=== PATIENT | male | born 1975 | race Hispanic/Latino ===

== ENCOUNTER 2017-10-14 12:45 | Inpatient (IN) | payer MEDICAID ==
[2017-10-14 12:48] VITALS: BMI 28.1
--- NOTE | 2017-10-14 13:15 | C.PDOC ---
History Of Present Illness Stephon Yap is a 42 year old male, with a past history of heroin abuse, who was transferred from [facility]. Last time used was 6pm yesterday. Patient was sent here due to suicidal thoughts with no plan. Patient does have track bearden on arms. Patient states he was in [facility] 2 years ago for the same symptoms. He denies any fever, chills, or other medical complaints. PMD: None provided. Time Seen by Provider: 10/14/17 13:00 Chief Complaint (Nursing): Psychiatric Evaluation History Per: Patient History/Exam Limitations: no limitations Onset/Duration Of Symptoms: Days Current Symptoms Are (Timing): Still Present Suicide/Self Injury Attempted (Context): None Associated Symptoms: Suicidal Thoughts. denies: Suicidal Plan Involuntary Hold By: None Past Medical History Reviewed: Historical Data, Nursing Documentation, Vital Signs Vital Signs: Last Vital Signs Temp 98.4 F 10/14/17 13:31 Pulse 78 10/14/17 13:31 Resp 20 10/14/17 13:31 BP 130/85 10/14/17 13:31 Pulse Ox 98 10/14/17 13:31 - Medical History PMH: Anxiety, Depression Denies: Chronic Kidney Disease Other PMH: opioid abuse Surgical History: No Surg Hx Family History: States: Unknown Family Hx - Social History Hx Tobacco Use: No Hx Alcohol Use: No Hx Substance Use: Yes - Immunization History Hx Tetanus Toxoid Vaccination: No Hx Influenza Vaccination: No Hx Pneumococcal Vaccination: No Review Of Systems Constitutional: Negative for: Fever, Chills Psych: Positive for: Suicidal ideation Physical Exam - Physical Exam Appears: Well, No Acute Distress Skin: Normal Color, Warm, Dry Head: Atraumatic, Normacephalic Eye(s): bilateral: Normal Inspection, PERRL, EOMI Ear(s): Bilateral: Normal Nose: Normal Oral Mucosa: Moist Throat: Normal Neck: Normal ROM, Supple Cardiovascular: Rhythm Regular, No Murmur Respiratory: Normal Breath Sounds, No Wheezing Gastrointestinal/Abdominal: Normal Exam, Soft, No Tenderness, No Guarding, No Rebound Back: Normal Inspection, No CVA Tenderness, No Vertebral Tenderness Extremity: Normal ROM, No Deformity, No Swelling Neurological/Psych: Oriented x3 (alert) Gait: Steady ED Course And Treatment Progress Note: Case discussed with crisis who request admission to Dr Sequeira Reassessment Condition: Unchanged - Physician Consult Information Physician Contacted: Mello Sequeira Outcome Of Conversation: admit Medical Decision Making Medical Decision Making: Initial Impression: Psychiatric evaluation Initial Plan: --1:1 Observation --Admit to hospital --reevaluation --Patient will be admitted for psychiatric evaluation, diagnosed with depression. Disposition Discussed With DrJanet: Mello Sequeira Doctor Will See Patient In The: Hospital - Disposition Disposition: HOSPITALIZED Disposition Time: 14:00 Condition: STABLE - POA Present On Arrival: None - Clinical Impression Clinical Impression: Major depression - Scribe Statement Darren Shannon All medical record entries made by the Scribe were at my direction and personally dictated by me. I have reviewed the chart and agree that the record accurately reflects my personal performance of the history, physical exam, medical decision making, and the department course for this patient. I have also personally directed, reviewed, and agree with the discharge instructions and disposition. Decision To Admit - Pt Status Changed To: Hospital Disposition Of: Inpatient - Admit Certification Admit to Inpatient:: After my assessment, the patient will require hospitalization for at least two midnights. This is because of the severity of symptoms shown, intensity of services needed, and/or the medical risk in this patient being treated as an outpatient. - InPatient: Physician Admission Certification: I certify that this patient requires 2 or more midnights of care for the following reason:: Major Depression - . Bed Request Type: Psychiatry Admitting Physician: Mello Sequeira Patient Diagnosis: Major depression
[2017-10-14 13:32] VITALS: TEMP 98.4; O2SAT 98
[2017-10-14 14:31] VITALS: RESP 17
--- NOTE | 2017-10-14 15:05 | PCM.BM ---
Treatment Plan Problems - Problems identified on initial assessmt Depression Date Initiated: 10/14/17 Time Initiated: 14:59 Assessment reference: NA Status: Active Substance Abuse Date Initiated: 10/14/17 Time Initiated: 14:59 Assessment reference: NA Status: Active Treatment assets and liabiliti Patient Assests: adapts well, cooperative, ADL independent, physically healthy, negotiates basic needs, cognitively intact Patient Liabilities: live alone (Homeless), financial problems, poor support system, substance abuse (Heroin uses 20-30 bags IV daily and Cocaine) - Milieu Protocol Maintain good personal hygiene: daily Encourage regular showers, daily Remind patient to perform daily oral care, other Assist patient to perform ADL's (Self) Conduct patient checks and document Observation sheet: Q15 minutes (Safety) Maintain personal safety: every shift Educate patient to report safety concerns to staff, every shift Monitor environment for contraband/sharps Medication safety: Monitor for expected outcome, potential side effects: every shift, Assess barriers to learning: every shift, Assess readiness for medication education: every shift
--- NOTE | 2017-10-14 15:55 | PCM.PSYCH ---
Initial Psychiatric Evaluation - Initial Psychiatric Evaluation Type of Admission: Voluntary Chief Complaint (in patient's own words): relapse, depression, aggressive behavior Patient's Reaction to Hospitalization: 42 year old Male who was transferred from [facility] due to opioid relapse, depression, and aggression. He currently is living with a friend on his couch for the past month. 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 Highest education level high school diploma, and attended 1.5 years of college. Patient reports he has been using IV heroine and IV cocaine since he was 24 years of age. From that point to until now he has had several periods of sobriety, longest being 5 years and the shortest being close to 1 year. He usually uses 20-30 bags of IV heroine (track bearden visible) and 2-3 bags of cocaine. Last use prior to this relapse was 18-19 months ago. In recent events, he became unemployed and has been living on a friend's couch. Since then, he states his friends also use IV drugs and being surrounded by this he relapsed. He has been using for the past week or so. His last use was 6pm day prior to admission, he was very upset with himself, for relapsing. He had the intention to overdose using 30 bags of IV heroine but within a short amount of time versus over a day. This is what prompt the patient to come in. Currently denies any voices being heard, any suicidal ideation or homicidal ideation. Patient has poor judgment and good insight about his condition. PMHx: Denied Past Psych History: Depression, Opioid Use Disorder, Cocaine Use Disorder Family Psych Hx: Denied Current Medications: Active Medications Generic Name Dose Route Start Last Admin Trade Name Freq PRN Reason Stop Dose Admin Gabapentin 300 mg 10/14/17 18:00 Neurontin PO TID MAURICIO Hydroxyzine HCl 25 mg 10/14/17 14:17 Atarax PO Q6 PRN Agitation Pneumococcal Polyvalent Vaccine 0.5 ml 10/17/17 10:00 Pneumovax 23 Vaccine IM 10/17/17 10:01 .ONCE ONE Sertraline HCl 50 mg 10/15/17 10:00 Zoloft PO DAILY MAURICIO Trazodone HCl 50 mg 10/14/17 22:00 Desyrel PO HS MAURICIO Past Psychiatric History - Past Psychiatric History Previous Treatment History: Intensive Outpatient Pertinent Medical Hx (Current Medical&Sleep Prob, Allergies): Allergies Allergy/AdvReac Type Severity Reaction Status Date / Time No Known Allergies Allergy Verified 03/29/16 01:20 Doxepin [Sinequan] 10 mg PO HS #30 cap 04/07/16 Gabapentin [Neurontin] 800 mg PO TID #90 cap 04/07/16 QUEtiapine [Seroquel] 25 mg PO BID #60 tab 04/07/16 QUEtiapine [Seroquel] 100 mg PO HS #30 tab 04/07/16 Sertraline [Zoloft] 50 mg PO DAILY #30 tab 04/07/16 Review of Systems - Review of Systems All systems: reviewed and no additional remarkable complaints except - Psychiatric Psychiatric: Behavioral Changes, Depression, Difficulty Concentrating, Hopelessness, Irritability. absent: Auditory Hallucinations, Hallucinations, Homicidal Ideation, Paranoia, Suicidal Ideation, Visual Hallucinations, Tactile Hallucinations Mental Status Examination - Personal Presentation Personal Presentation: Looks stated age - Affect Affect: Depressed - Motor Activity Motor Activity: Calm - Reliability in Providing Information Reliability in Providing Information: Fair - Speech Speech: Organized, Relevant - Mood Mood: Depressed - Formal Thought Process Formal Thought Process: No Impairment - Cognitive Functions Orientation: Person, Place, Situation, Time Judgement: Imparied, as evidence by: Poor judgement, Intact, as evidence by: Insight regarding need for hospitalization - Risk Risk: Suicidal DSM 5 DX - Recommended/Plan of Treatment Treatment Recommendations and Plan of Treatment: Opioid Use Disorder, Severe -CBT -Psychoeducation -Supportive therapy, individual therapy -Use VT for abstinence Opioid Withdrawal -CBT -Psychoeducation -Supportive therapy, individual therapy -Clonidine when necessary -Methadone taper Major Depression Disorder -Zoloft 50mg by mouth daily Chani Covington Dr., DO, PGY-1
[2017-10-14 16:09] VITALS: BP 126/83; PULSE 97
--- NOTE | 2017-10-15 09:46 | PCM.PYCHDC ---
Mental Status Examination - Mental Status Examination Orientation: Person, Place, Situation, Time Memory: Intact Mood: Neutral Affect: Constricted Speech: Soft Attention: WNL Concentration: WNL Association: WNL Fund of Knowledge: WNL Formal Thought Process: No Impairment Description of patient's judgement and insight: partially impaired Psychotic Thoughts and Behaviors: denies any AVH Suicidal Ideation: No Current Homicidal Ideation?: No Discharge Summary - Discharge Note Reason for Hospitalization: 42 year old Male who was transferred from [facility] due to opioid relapse, depression, and aggression. He currently is living with a friend on his couch for the past month. 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 Highest education level high school diploma, and attended 1.5 years of college. Patient reports he has been using IV heroine and IV cocaine since he was 24 years of age. From that point to until now he has had several periods of sobriety, longest being 5 years and the shortest being close to 1 year. He usually uses 20-30 bags of IV heroine (track bearden visible) and 2-3 bags of cocaine. Last use prior to this relapse was 18-19 months ago. In recent events, he became unemployed and has been living on a friend's couch. Since then, he states his friends also use IV drugs and being surrounded by this he relapsed. He has been using for the past week or so. His last use was 6pm day prior to admission, he was very upset with himself, for relapsing. He had the intention to overdose using 30 bags of IV heroine but within a short amount of time versus over a day. This is what prompt the patient to come in. Currently denies any voices being heard, any suicidal ideation or homicidal ideation. Patient has poor judgment and good insight about his condition. Consultations:: List each consultation separately and include: 1. Reason for request. 2. Findings. 3. Follow-up Summary of Hospital Course include:: 1. Description of specific treatment plan utilized for patients during their course of treatmen. 2. Summarize the time- course for resolution of acute symptoms and/or regressed behaviors. 3. Describe issues identified and worked on during hospitalization. 4. Describe medication utilized. 5. Describe medical problems identified and treated. 6. Reassessment of suicide risk Summary of Hospital Course: Today in the morning patient requested to be discharged. He signed 48 hours notice, but he also called his friend to pick him up early in the morning. He started yelling and cursing at the staff and demanding to be discharged immediately. Pt mentioned that he came here last night, since then he is getting medications and now he is feeling better. He signed out AMA. He denied any feelings of hopelessness, helplessness, and worthlessness, denied any problem with the sleep or appetite, denied suicidal ideation or homicidal ideation. Pt denied any auditory or visual hallucinations. Some changes were made in his current medications and patient was discharged on following medications. He tolerated these medications very well and denied any side effects. - Final Diagnosis (DSM 5) Condition upon Discharge: STABLE DSM 5: Opioid Use Disorder, Severe Opioid Withdrawal Major Depression Disorder Disposition: AGAINST MEDICAL ADVICE Follow-up Treatment Plan: Education: Pt was educated and counseled about the risks and benefits of taking and not taking medications. Pt was educated and counseled about the risks of drinking and abusing drugs. Pt was educated and counseled to go to the ER or call 911 if pt develop suicidal ideation or homicidal ideation, worsening of symptoms or severe side effects of the meds. - Smoking Cessation Smoking Cessation Medication prescribed: No - Antipsychotic Medications Pt discharged on 2 or more routine antipsychotic medications: No
[2017-10-17] MEDS ORDERED: Pneumococcal 23-Valent Vaccine IM ONE (10:00)
[2017-10-17] MEDS ORDERED: Influenza Vaccine 60 mcg/0.5 mL SYR (4YR UP) IM ONE (10:00)
== END 2017-10-15 09:40 | disposition left against medical advice (07) | DRG 894 ==
LOC: C.ER 12:45 → C.5E 13:11
PROVIDERS: ADMIT Psychiatry & Neurology Psychiatry; ATTEND Psychiatry & Neurology Psychiatry
PROC: HZ2ZZZZ Detoxification Services for Substance Abuse Treatment (ICD-10-PCS; principal; 2017-10-14)
PROC: HZ59ZZZ Individual Psychotherapy for Substance Abuse Treatment, Supportive (ICD-10-PCS; 2017-10-14)
PROC: HZ46ZZZ Group Counseling for Substance Abuse Treatment, Psychoeducation (ICD-10-PCS; 2017-10-14)
PROC: GZ3ZZZZ Medication Management (ICD-10-PCS; 2017-10-14)
DX: F11.23 Opioid dependence with withdrawal (principal); R45.851 Suicidal ideations; F32.9 Major depressive disorder, single episode, unspecified